=== PATIENT | male | born 1990 | race Caucasian/White ===

== ENCOUNTER 2017-02-13 02:19 | Emergency (ER) | payer MEDICAID ==
[~2017-02-13] VITALS: Ht 180.3 cm; Wt 77.1 kg
[2017-02-13 03:30] VITALS: BP 138/72
== END 2017-02-13 03:30 | disposition home or self-care (01) ==
LOC: ED 02:19
DX: S20.212A Contusion of left front wall of thorax, initial encounter (principal); K21.9 Gastro-esophageal reflux disease without esophagitis; Y08.89XA Assault by other specified means, initial encounter; Y93.89 Activity, other specified; Y99.8 Other external cause status; Y92.89 Other specified places as the place of occurrence of the external cause

== ENCOUNTER 2017-05-01 10:39 | Emergency (ER) | payer SELFPAY ==
[~2017-05-01] VITALS: Ht 177.8 cm; Wt 75.9 kg
[2017-05-01 12:08] VITALS: BP 130/90
== END 2017-05-01 12:08 | disposition home or self-care (01) ==
LOC: ED 10:39
DX: S46.911A Strain of unspecified muscle, fascia and tendon at shoulder and upper arm level, right arm, initial encounter (principal); X58.XXXA Exposure to other specified factors, initial encounter; F17.200 Nicotine dependence, unspecified, uncomplicated; K21.9 Gastro-esophageal reflux disease without esophagitis; Y93.89 Activity, other specified; Y99.8 Other external cause status; Y92.89 Other specified places as the place of occurrence of the external cause
CPT/HCPCS: J1885

== ENCOUNTER 2017-05-29 13:11 | Emergency (ER) | payer SELFPAY ==
[~2017-05-29] VITALS: Ht 180.3 cm; Wt 7637.0 kg
[2017-05-29 13:30] VITALS: BP 116/79
== END 2017-05-29 15:15 | disposition home or self-care (01) ==
LOC: ED 13:11
DX: M25.511 Pain in right shoulder (principal)
CPT/HCPCS: J1885

== ENCOUNTER 2017-06-29 01:12 | Emergency (ER) | payer SELFPAY ==
[2017-06-29 04:39] VITALS: BP 134/72
== END 2017-06-29 04:39 | disposition home or self-care (01) ==
LOC: ED 01:12
DX: J18.1 Lobar pneumonia, unspecified organism (principal); F17.200 Nicotine dependence, unspecified, uncomplicated; K21.9 Gastro-esophageal reflux disease without esophagitis

== ENCOUNTER 2017-11-03 05:39 | Emergency (ER) | payer SELFPAY ==
[2017-11-03 05:50] VITALS: BP 158/87
== END 2017-11-03 07:21 | disposition home or self-care (01) ==
LOC: ED 05:39
DX: L03.012 Cellulitis of left finger (principal); K21.9 Gastro-esophageal reflux disease without esophagitis

== ENCOUNTER 2018-02-08 04:13 | Emergency (ER) | payer SELFPAY ==
[~2018-02-08] VITALS: Ht 180.3 cm; Wt 81.4 kg
[2018-02-08 04:29] VITALS: Ht 180.3 cm; Wt 81.4 kg
[2018-02-08 05:38] VITALS: BP 123/89
== END 2018-02-08 05:38 | disposition home or self-care (01) ==
LOC: ED 04:13
DX: S29.012A Strain of muscle and tendon of back wall of thorax, initial encounter (principal); X58.XXXA Exposure to other specified factors, initial encounter; Y93.89 Activity, other specified; Y92.89 Other specified places as the place of occurrence of the external cause; Y99.8 Other external cause status

== ENCOUNTER 2018-02-26 23:58 | Emergency (ER) | payer SELFPAY ==
[~2018-02-26] VITALS: Ht 180.3 cm; Wt 81.9 kg
[2018-02-27 00:03] VITALS: Ht 180.3 cm; Wt 81.9 kg
[2018-02-27 02:50] VITALS: BP 135/80
== END 2018-02-27 02:50 | disposition home or self-care (01) ==
LOC: ED 23:58
DX: L02.415 Cutaneous abscess of right lower limb (principal); K21.9 Gastro-esophageal reflux disease without esophagitis
CPT/HCPCS: J2001

== ENCOUNTER 2018-05-17 03:46 | Emergency (ER) | payer SELFPAY ==
[~2018-05-17] VITALS: Ht 180.3 cm; Wt 81.6 kg
[2018-05-17 03:56] VITALS: Ht 180.3 cm; Wt 81.6 kg
[2018-05-17 05:09] VITALS: BP 137/90
== END 2018-05-17 05:09 | disposition home or self-care (01) ==
LOC: ED 03:46
DX: S86.911A Strain of unspecified muscle(s) and tendon(s) at lower leg level, right leg, initial encounter (principal); K21.9 Gastro-esophageal reflux disease without esophagitis; X58.XXXA Exposure to other specified factors, initial encounter; Y93.89 Activity, other specified; Y92.89 Other specified places as the place of occurrence of the external cause; Y99.8 Other external cause status
CPT/HCPCS: J1885

== ENCOUNTER 2019-05-21 03:23 | Emergency (ER) | payer MEDICAID ==
[~2019-05-21] VITALS: Ht 180.3 cm; Wt 79.4 kg
[2019-05-21 03:25] VITALS: Ht 180.3 cm; Wt 79.4 kg
[2019-05-21 05:08] VITALS: BP 142/84
== END 2019-05-21 05:08 | disposition home or self-care (01) ==
LOC: ED 03:23
DX: L02.01 Cutaneous abscess of face (principal)
CPT/HCPCS: J0690